=== PATIENT | female | born 2000 | race Caucasian/White ===

== ENCOUNTER 2021-12-21 00:53 | Emergency (ER) | payer SELFPAY ==
[~2021-12-21] VITALS: Ht 149.9 cm; Wt 42.6 kg
[2021-12-21 01:11] VITALS: BP 116/16
--- NOTE | 2021-12-21 02:50 | NUR ---
Patient being evaluated by physician at bedside.
--- NOTE | 2021-12-21 02:55 | NUR ---
LOWELL AMBULATED TO AND BACK TO BED 9
--- NOTE | 2021-12-21 02:57 | NUR ---
21/F BIB SELF FROM HOME C/C LOWER BACK PAIN RAD TO LOWER ABD X1WEEK. PATIENT STATED THAT PAIN IS 4/10 AND SHARP. PATIENT DENIES TAKING PAIN MEDS PRIOR TO ARRIVAL. PATIENT STATED THAT SHE TESTED POSITIVE PREG X2DAYS AGO WITH AN AT HOME KIT. DENIES URINARY S/S , NAUSEA, VOMIT, DIAR., CONSTIPATION. ABD IS NON TENDER AND SOFT. PATIENT PLACED IN A GOWN. BED LOW AND LOCKED, SIDE RAIL UP X1. ALL NEEDS MET. LMP NOVEMBER 04 DENIES PMHX, RX NKA
--- NOTE | 2021-12-21 03:46 | NUR ---
ERMD AT BEDSIDE.
[2021-12-21] MEDS ORDERED: PNV91TAB10 PO (03:53)
[2021-12-21 04:14] VITALS: BP 118/74
--- NOTE | 2021-12-21 04:14 | NUR ---
Patient discharged with v/s stable. Written and verbal after care instructions given and explained. Patient alert, oriented and verbalized understanding of instructions. Ambulatory with steady gait. All questions addressed prior to discharge. ID band removed. Patient advised to follow up with PMD. Rx of PRENATALS given. Patient educated on indication of medication including possible reaction and side effects. Opportunity to ask questions provided and answered.
== END 2021-12-21 04:14 | disposition home or self-care (01) ==
LOC: MED 00:53
DX: O26.891 Other specified pregnancy related conditions, first trimester (principal); M54.50 Low back pain, unspecified; Z3A.01 Less than 8 weeks gestation of pregnancy; Z87.442 Personal history of urinary calculi
CPT/HCPCS: 81002; 81025; 99282